=== PATIENT | male | born 1980 | race Caucasian/White ===

== ENCOUNTER → 2020-02-16 14:39 | Outpatient (BNVA) | payer BC, SELFPAY | PROVIDERS: PCP Internal Medicine; Visit Provider Urology | DX: Z76.89 Persons encountering health services in other specified circumstances (principal) | CPT/HCPCS: 55250 ==

== ENCOUNTER 2020-05-30 12:36 | Outpatient (REF) | payer SELFPAY | END 2020-05-30 12:37 | disposition home or self-care (01) | LOC: HO.LAB 12:36 | PROVIDERS: Visit Provider Internal Medicine | DX: Z20.822 Contact with and (suspected) exposure to COVID-19 (principal) | CPT/HCPCS: 36415; C9803; U0003 ==

== ENCOUNTER → 2020-11-30 14:05 | Outpatient (BNVA) | payer SELFPAY | PROVIDERS: Visit Provider Urology | DX: F41.8 Other specified anxiety disorders (principal); Z98.52 Vasectomy status | CPT/HCPCS: 99212 ==

== ENCOUNTER 2020-12-18 10:53 | Outpatient (REF) | payer SELFPAY ==
[2020-12-18 10:57] LABS: MANUAL DIFF FLAG NO
[2020-12-18 11:13] LABS: Basophils Percent Auto 0.4 % (0-2); Eosinophils Absolute Auto 0.3 X10*3/uL (0.0-0.4); Eosinophils Percent Auto 4.9 % (0-4); Hematocrit 49.3 % (42-52); Hemoglobin 15.7 g/dl (14.0-18.0); Imm Gran Abs Auto 0.01 X10*3/uL (0.00-0.03); Imm Gran Pct Auto 0.2 % (0.0-0.4); Lymphocytes Absolute Auto 2.2 X10*3/uL (1.2-4.9); Lymphocytes Percent Auto 38.2 % (20-40); Mean Corpuscular HGB Conc 31.8 g/dl (31.0-36.0); Mean Corpuscular Hemoglobin 29.3 pg (27.0-33.0); Mean Platelet Volume 8.9 fL (9.4-12.4); Monocytes Absolute Auto 0.6 X10*3/uL (0.1-1.2); Monocytes Percent Auto 10.5 % (2-11); Neutrophils Absolute Auto 2.6 X10*3/uL (2.0-8.3); Neutrophils Percent Auto 45.8 % (45-73); Platelet Count 310 X10*3/uL (160-400); Red Blood Count 5.36 X10*6/uL (4.60-5.80); Red Cell Distribution Width 12.5 % (11.0-16.0); White Blood Count 5.7 X10*3/uL (4.8-10.8)
[2020-12-18 11:38] LABS: Alanine Aminotransferase 56 U/L (0-40); Albumin Level 4.4 g/dL (3.5-5.0); Alkaline Phosphatase 60 U/L (39-117); Anion Gap 12 (12-20); Aspartate Amino Transferase 30 U/L (5-37); Bilirubin Total 0.5 mg/dL (0.0-1.0); Blood Urea Nitrogen 11 mg/dL (9-16); Calcium 9.6 mg/dL (8.4-10.2); Carbon Dioxide 26 mmol/L (22-29); Chloride 107 mmol/L (96-108); Cholesterol 203 mg/dL; Estimated Glomerular Filt Rate > 60; Glucose Fasting 120 mg/dL (60-99); HDL Cholesterol 34 mg/dL; LDL Cholesterol Calculated 123 mg/dl; Potassium 3.8 mmol/L (3.3-5.1); Sodium 141 mmol/L (135-145); Total Protein 7.4 g/dL (6.5-8.0); Triglycerides 230 mg/dL
[2020-12-18 11:45] LABS: Glucose Urine UA NEG (NEG); Leukocyte Esterase Urine NEG (NEG); Nitrite Urine NEG (NEG); PH 5.5 (5.0-8.0); Specific Gravity - Urine >= 1.030 (1.005-1.025); Urine Blood NEG (NEG); Urine Ketones NEG (NEG); Urine Protein TRACE MG/DL (NEG-TRACE)
[2020-12-18 11:55] LABS: Appearance Urine CLEAR; Color Urine YELLOW
== END 2020-12-18 10:54 | disposition home or self-care (01) ==
LOC: HO.LNP 10:53
PROVIDERS: Visit Provider Internal Medicine
DX: Z00.00 Encounter for general adult medical examination without abnormal findings (principal)
CPT/HCPCS: 80053; 80061; 81003; 85025

== ENCOUNTER 2021-12-19 11:28 | Outpatient (REF) | payer BC, SELFPAY ==
[2021-12-19 11:35] LABS: MANUAL DIFF FLAG NO
[2021-12-19 11:58] LABS: Basophils Percent Auto 0.4 % (0-2); Eosinophils Absolute Auto 0.3 X10*3/uL (0.0-0.4); Eosinophils Percent Auto 3.9 % (0-4); Hematocrit 48.3 % (42.0-52.0); Hemoglobin 16.2 g/dl (14.0-18.0); Imm Gran Abs Auto 0.02 X10*3/uL (0.00-0.03); Imm Gran Pct Auto 0.3 % (0.0-0.4); Lymphocytes Absolute Auto 2.8 X10*3/uL (1.2-4.9); Mean Corpuscular HGB Conc 33.5 g/dl (31.0-36.0); Mean Corpuscular Hemoglobin 30.2 pg (27.0-33.0); Mean Corpuscular Volume 90.1 fL (80.0-98.0); Mean Platelet Volume 8.9 fL (9.4-12.4); Monocytes Absolute Auto 0.8 X10*3/uL (0.1-1.2); Monocytes Percent Auto 9.7 % (2-11); Neutrophils Percent Auto 50.7 % (45-73); Platelet Count 359 X10*3/uL (160-400); Red Blood Count 5.36 X10*6/uL (4.60-5.80); Red Cell Distribution Width 12.6 % (11.0-16.0)
[2021-12-19 12:25] LABS: Alanine Aminotransferase 59 U/L (0-40); Albumin Level 4.5 g/dL (3.5-5.0); Alkaline Phosphatase 82 U/L (39-117); Anion Gap 14 (12-20); Aspartate Amino Transferase 28 U/L (5-37); Bilirubin Total 0.3 mg/dL (0.0-1.0); Blood Urea Nitrogen 15 mg/dL (9-16); Calcium 9.7 mg/dL (8.4-10.2); Carbon Dioxide 29 mmol/L (22-29); Chloride 102 mmol/L (96-108); Cholesterol 224 mg/dL; Estimated Glomerular Filt Rate > 60; Glucose Random 92 mg/dL (60-115); HDL Cholesterol 39 mg/dL; LDL Cholesterol Calculated 137 mg/dl; Sodium 141 mmol/L (135-145); Total Protein 8.2 g/dL (6.5-8.0); Triglycerides 244 mg/dL
[2021-12-19 12:26] LABS: Appearance Urine Clear; Color Urine Yellow; Glucose Urine UA Negative (Negative); Leukocyte Esterase Urine Negative (Negative); Nitrite Urine Negative (Negative); PH 5.5 (5.0-8.0); Urine Blood Negative (Negative); Urine Ketones Negative (Negative); Urine Protein Negative (Neg-Trace)
[2021-12-19 12:29] LABS: Bacteria Urine None Seen (None Seen); Hyaline Casts Urine 0-2 /LPF (0-2); RBC Urine 0-2 /HPF (0-2); Squamous Epithelial Cell Urine 0-2 /HPF (0-2); WBC Urine 0-5 /HPF (0-5)
[2021-12-19 12:48] LABS: PSA,Total (Free>4and<10) 0.52 ng/mL (0.00-4.00)
== END 2021-12-19 11:29 | disposition home or self-care (01) ==
LOC: HO.LNP 11:28
PROVIDERS: Visit Provider Internal Medicine
DX: Z00.00 Encounter for general adult medical examination without abnormal findings (principal); E78.6 Lipoprotein deficiency; I10 Essential (primary) hypertension; Z12.5 Encounter for screening for malignant neoplasm of prostate
CPT/HCPCS: 80053; 80061; 81001; 84153; 85025

== ENCOUNTER 2023-04-20 10:43 | Outpatient (REF) | payer BC, OTHER, SELFPAY ==
[2023-04-20 10:48] LABS: MANUAL DIFF FLAG NO
[2023-04-20 10:54] LABS: Appearance Urine Clear; Basophils Percent Auto 0.5 % (0-2); Color Urine Yellow; Eosinophils Absolute Auto 0.2 X10*3/uL (0.0-0.4); Eosinophils Percent Auto 3.6 % (0-4); Glucose Urine UA Negative (Negative); Hematocrit 48.6 % (42.0-52.0); Imm Gran Abs Auto 0.02 X10*3/uL (0.00-0.03); Imm Gran Pct Auto 0.3 % (0.0-0.4); Leukocyte Esterase Urine Negative (Negative); Lymphocytes Absolute Auto 2.2 X10*3/uL (1.2-4.9); Lymphocytes Percent Auto 35.5 % (20-40); Mean Corpuscular HGB Conc 32.9 g/dl (31.0-36.0); Mean Corpuscular Volume 91.2 fL (80.0-98.0); Mean Platelet Volume 9.1 fL (9.4-12.4); Monocytes Absolute Auto 0.7 X10*3/uL (0.1-1.2); Monocytes Percent Auto 11.2 % (2-11); Neutrophils Percent Auto 48.9 % (45-73); Nitrite Urine Negative (Negative); Platelet Count 315 X10*3/uL (160-400); Red Blood Count 5.33 X10*6/uL (4.60-5.80); Red Cell Distribution Width 12.7 % (11.0-16.0); Specific Gravity - Urine 1.025 (1.005-1.025); Urine Blood Negative (Negative); Urine Ketones Trace mg/dL (Negative); Urine Protein Negative (Neg-Trace); White Blood Count 6.2 X10*3/uL (4.8-10.8)
[2023-04-20 10:56] LABS: Bacteria Urine None Seen (None Seen); Hyaline Casts Urine 0-2 /LPF (0-2); RBC Urine 0-2 /HPF (0-2); Squamous Epithelial Cell Urine 0-2 /HPF (0-2); WBC Urine 0-5 /HPF (0-5)
[2023-04-20 11:05] LABS: Alanine Aminotransferase 41 U/L (0-40); Albumin Level 4.3 g/dL (3.5-5.0); Alkaline Phosphatase 56 U/L (39-117); Anion Gap 11 (12-20); Aspartate Amino Transferase 24 U/L (5-37); Bilirubin Total 0.6 mg/dL (0.0-1.0); Blood Urea Nitrogen 11 mg/dL (9-16); Calcium 9.4 mg/dL (8.4-10.2); Carbon Dioxide 29 mmol/L (22-29); Chloride 105 mmol/L (96-108); Cholesterol 213 mg/dL (<200); Estimated Glomerular Filt Rate > 60; Glucose Fasting 92 mg/dL (60-99); HDL Cholesterol 36 mg/dL (>40); LDL Cholesterol Calculated 135 mg/dL (<100); Potassium 3.3 mmol/L (3.3-5.1); Sodium 142 mmol/L (135-145); Total Protein 7.7 g/dL (6.5-8.0); Triglycerides 210 mg/dL (<150)
[2023-04-20 11:25] LABS: PSA,Total (Free>4and<10) 0.75 ng/mL (0.00-4.00)
== END 2023-04-20 10:44 | disposition home or self-care (01) ==
LOC: HO.LNP 10:43
PROVIDERS: Visit Provider Internal Medicine
DX: Z00.00 Encounter for general adult medical examination without abnormal findings (principal); Z12.5 Encounter for screening for malignant neoplasm of prostate; I10 Essential (primary) hypertension
CPT/HCPCS: 80053; 80061; 81001; 84153; 85025

== ENCOUNTER 2024-04-19 11:23 | Outpatient (REF) | payer BC, OTHER, SELFPAY ==
[2024-04-19 11:26] LABS: MANUAL DIFF FLAG NO
[2024-04-19 11:35] LABS: Basophils Percent Auto 0.3 % (0-2); Eosinophils Absolute Auto 0.3 X10*3/uL (0.0-0.4); Eosinophils Percent Auto 4.5 % (0-4); Hematocrit 48.9 % (42.0-52.0); Hemoglobin 16.2 g/dl (14.0-18.0); Imm Gran Abs Auto 0.01 X10*3/uL (0.00-0.03); Imm Gran Pct Auto 0.2 % (0.0-0.4); Lymphocytes Absolute Auto 2.7 X10*3/uL (1.2-4.9); Lymphocytes Percent Auto 41.9 % (20-40); Mean Corpuscular HGB Conc 33.1 g/dl (31.0-36.0); Mean Corpuscular Hemoglobin 29.9 pg (27.0-33.0); Mean Corpuscular Volume 90.2 fL (80.0-98.0); Mean Platelet Volume 8.8 fL (9.4-12.4); Monocytes Absolute Auto 0.7 X10*3/uL (0.1-1.2); Monocytes Percent Auto 10.5 % (2-11); Neutrophils Absolute Auto 2.7 x10*3/uL (2.0-8.3); Neutrophils Percent Auto 42.6 % (45-73); Platelet Count 309 X10*3/uL (160-400); Red Blood Count 5.42 X10*6/uL (4.60-5.80); Red Cell Distribution Width 12.6 % (11.0-16.0); White Blood Count 6.4 X10*3/uL (4.8-10.8)
[2024-04-19 11:44] LABS: Appearance Urine Clear; Color Urine Yellow; Glucose Urine UA Negative (Negative); Leukocyte Esterase Urine Negative (Negative); Nitrite Urine Negative (Negative); Specific Gravity - Urine 1.025 (1.005-1.025); Urine Blood Negative (Negative); Urine Ketones Trace mg/dL (Negative); Urine Protein Negative (Neg-Trace)
[2024-04-19 11:46] LABS: Alanine Aminotransferase 67 U/L (0-40); Albumin Level 4.4 g/dL (3.5-5.0); Alkaline Phosphatase 65 U/L (39-117); Anion Gap 10 (12-20); Aspartate Amino Transferase 37 U/L (5-37); Bilirubin Total 0.5 mg/dL (0.0-1.0); Blood Urea Nitrogen 12 mg/dL (9-16); Calcium 9.5 mg/dL (8.4-10.2); Carbon Dioxide 29 mmol/L (22-29); Chloride 106 mmol/L (96-108); Cholesterol 227 mg/dL (<200); Estimated Glomerular Filt Rate > 60; Glucose Fasting 96 mg/dL (60-99); HDL Cholesterol 39 mg/dL (>40); LDL Cholesterol Calculated 130 mg/dL (<100); Potassium 3.6 mmol/L (3.3-5.1); Sodium 141 mmol/L (135-145); Total Protein 7.9 g/dL (6.5-8.0); Triglycerides 292 mg/dL (<150)
[2024-04-19 12:04] LABS: PSA,Total (Free>4and<10) 0.45 ng/mL (0.00-4.00)
== END 2024-04-19 11:24 | disposition home or self-care (01) ==
LOC: HO.LNP 11:23
PROVIDERS: Visit Provider Internal Medicine
DX: Z00.00 Encounter for general adult medical examination without abnormal findings (principal); Z12.5 Encounter for screening for malignant neoplasm of prostate; I10 Essential (primary) hypertension; E78.6 Lipoprotein deficiency
CPT/HCPCS: 80053; 80061; 81003; 84153; 85025

== ENCOUNTER 2025-05-02 10:43 | Outpatient (REF) | payer SELFPAY ==
--- OUTSIDE RECORDS SUMMARY | 2024-04-19 02:00 | XMS_ITS ---
Author Organization Marcos Bae MD Address [address] [place], [place] [phone] Care Team Providers Care Nursing Agency Manager Name Role Phone Marcos Bae Primary Care Provider Results Component Value Reference Range Notes Complete Blood Count Auto Di ff Reviewed date:04/19/2024 12:22:17 PM Interpretation: Performing Lab:[facility], [address] [place] [phone] Notes/Report: White Blood Count 6.4 4.8-10.8 X10*3/uL Red Blood Count 5.42 4.60-5.80 X10*6/uL Hemoglobin 16.2 14.0-18.0 g/dl Hematocrit 48.9 42.0-52.0 % Mean Corpuscular Volume 90.2 80.0-98.0 fL Mean Corpuscular Hemoglobin 29.9 27.0-33.0 pg Mean Corpuscular HGB Conc 33.1 31.0-36.0 g/dl Red Cell Distribution Width 12.6 11.0-16.0 % Platelet Count 309 160-400 X10*3/uL Mean Platelet Volume 8.8 9.4-12.4 fL Neutrophils Percent Auto 42.6 45-73 % Imm Gran Pct Auto 0.2 0.0-0.4 % Lymphocytes Percent Auto 41.9 20-40 % Monocytes Percent Auto 10.5 2-11 % Eosinophils Percent Auto 4.5 0-4 % Basophils Percent Auto 0.3 0-2 % NRBC Pct Auto 0.0 0.0-0.2 /100WBC Neutrophils Absolute Auto 2.7 2.0-8.3 x10*3/u L Imm Gran Abs Auto 0.01 0.00-0.03 X10*3/uL Lymphocytes Absolute Auto 2.7 1.2-4.9 X10*3/u L Monocytes Absolute Auto 0.7 0.1-1.2 X10*3/uL Eosinophils Absolute Auto 0.3 0.0-0.4 X10*3/u L Basophils Absolute Auto 0.0 0.0-0.2 X10*3/uL NRBC Abs Auto 0.000 0.0-0.012 X10*3/uL Comprehensive [place]. Panel Fa st Reviewed date:04/21/2024 05:06:09 PM Interpretation: Performing Lab:[facility], [address] [place] [phone] Notes/Report: Sodium 141 135-145 mmol/L Potassium 3.6 3.3-5.1 mmol/L Chloride 106 96-108 mmol/L Carbon Dioxide 29 22-29 mmol/L Anion Gap 10 12-20 Blood Urea Nitrogen 12 9-16 mg/dL Creatinine 1.02 0.5-1.4 mg/dL Estimated Glomerular Filt Rate > 60 Chronic Kidney Disease: Estimated GFR < 60 mL/min/1.73m2 Severe Kidney Disease: Estimated GFR < 15 mL/min/1.73m2 Glucose Fasting 96 60-99 mg/dL Calcium 9.5 8.4-10.2 mg/dL Bilirubin Total 0.5 0.0-1.0 mg/dL Aspartate Amino Transferase 37 5-37 U/L Alanine Aminotransferase 67 0-40 U/L Total Protein 7.9 6.5-8.0 g/dL Albumin Level 4.4 3.5-5.0 g/dL Alkaline Phosphatase 65 39-117 U/L Lipid Panel Reviewed date:04/19/2024 12:23:16 PM Interpretation: Performing Lab:[facility], [address] [place] [phone] Notes/Report: Triglycerides 292 <150 mg/dL Desirable Triglyceride: less than 150 mg/dL Borderline High Triglyceride 150-199 mg/dL High Triglyceride: 200-499 mg/dL Very High Triglyceride: greater than or equal to 5OO mg/dL Cholesterol 227 <200 mg/dL Desirable Cholesterol: less than 200 mg/dL Borderline High Cholesterol: 200-239 mg/dL High Cholesterol: greater than 239 mg/dL LDL Cholesterol Calculated 130 <100 mg/dL Desirable LDL: less than 100 mg/dL Near Optimal/Above Optimal LDL: 110-129 mg/dL Borderline High LDL: 130-159 mg/dL High LDL: 160-189 mg/dL Very High LDL: greater than or equal to 190 mg/dL HDL Cholesterol 39 >40 mg/dL Desirable HDL: greater than 40 mg/dL Note: This HDL assay may give artificially low results in patients with liver disease. PSA,Total (Free>4and<10) Reviewed date:04/19/2024 12:23:08 PM Interpretation: Performing Lab:[facility], [address] [place] [phone] Notes/Report: PSA,Total (Free>4and<10) 0.45 0.00-4.00 ng/mL A Free PSA was not performed: The percentage of Free PSA can be used to enhance the differentiation of prostate cancer from benign prostatic disease in subjects whose PSA levels are between 4.0 and 10.0 ng/mL. For subjects whose PSA levels are below 4.0 or above 10.0 ng/mL, the risk of prostate cancer is determined on the basis of the PSA alone. Therefore the % Free PSA is recommended only for those subjects whose PSA levels are between 4.0 and 10.0 ng/mL. PSA methodology: Bunch Alinity i Chemiluminescent Microparticle Immunoassay (CMIA) REASON FOR VISIT yealy fasting labs Medications Medication SIG (Take, Route, Frequency, Duration) Notes Start Date End Date Status EpiPen 2-Fidel 0.3 MG/0.3ML as directed Injection daily for 90 days 06/07/2019 Not-Taking Ibuprofen 800 MG 1 tablet with food o r milk as needed Orally Three times a day for 30 days 12/26/2021 Not-Taking Ibuprofen 800 MG 1 tablet Orally Thre e times a day for 30 day(s) 07/13/2012 Not-Taking Lisinopril-hydroCHLOROth iazide 10-12.5 MG 1 tablet Orally Once a day for 90 days 04/24/2023 Active Ambien 5 MG 1 tablet at bedtime as needed Orally Once a day as needed for 30 days 07/07/2023 Active Encounters Encounter Location Date Provider Diagnosis Marcos Bae MD [address] [place] [address] Drive [address] [place], [place] [phone] 04/19/2024 Marcos Bae Blood tests for routine general physical examination Z00.00 ; Benign essential hypertension I10 and Low HDL (under 40) E78.6 Assessments Encounter Date Diagnosis (ICD Code) Assessment Notes Treatment Notes Treatment Clinical Notes Section Notes 04/19/2024 Blood tests for routine general physical examination (ICD-10 - Z00.00) 04/19/2024 Benign essential hypertension (ICD-10 - I10) 04/19/2024 Low HDL (under 40) (ICD-10 - E78.6) Plan Of Treatment Next Appt Details Provider Name:Marcos Shah ier, 05/08/2025 02:30:00 PM, [address], [address], [place], [place], [phone], Progress Notes * Dinh CEDENODOB:[birth year] (44 yo M)Acc No.[id number]:04/19/2024 Progress Note Patient: Dinh ROSARIO Provider: Ava Bae MD :1980 A ge:43 Y S ex:Male Date:04/19/2024 Address:[address] [place], [place] [phone] Subjective: * Chief Complaints: * 1 . Yealy fasting labs. * Medical History: * Medications: T aking Lisinopril-hydroCHLOROthiazide 10-12.5 MG Tablet 1 tablet Orally Once a day , Taking Ambien 5 MG Tablet 1 tablet at bedtime as needed Orally Once a day as needed , Not-Taking/PRN EpiPen 2-Fidel 0.3 MG/0.3ML Solution Auto-injector as directed Injection daily , Not-Taking/PRN Ibuprofen 800 MG Tablet 1 tablet with food or milk as needed Orally Three times a day , Not-Taking/PRN Ibuprofen 800 MG Tablet 1 tablet Orally Three times a day Objective: * Vitals: Assessment: * Assessment: 1. B lood tests for routine general physical examination - Z00.00 (Primary) 2 .?Benign essential hypertension - I10 3 . L ow HDL (under 40) - E78.6 ? Plan: * Treatment: 2. B enign essential hypertension L AB: UA ClnCatch+Micro w/rflx Cult (Order Cancelled) L AB: Complete Blood Count Auto Diff (Collection Date & Time - 04/19/2024 07:00 AM) L AB: Comprehensive [place]. Panel Fast (Collection Date & Time - 04/19/2024 07:00 AM) L AB: Lipid Panel (Collection Date & Time - 04/19/2024 07:00 AM) L AB: PSA,Total (Free>4and<10) (Collection Date & Time - 04/19/2024 07:00 AM) 3. L ow HDL (under 40) L AB: UA ClnCatch+Micro w/rflx Cult (Order Cancelled) L AB: Complete Blood Count Auto Diff (Collection Date & Time - 04/19/2024 07:00 AM) L AB: Comprehensive [place]. Panel Fast (Collection Date & Time - 04/19/2024 07:00 AM) L AB: Lipid Panel (Collection Date & Time - 04/19/2024 07:00 AM) L AB: PSA,Total (Free>4and<10) (Collection Date & Time - 04/19/2024 07:00 AM) * Procedure Codes: 3 6415 VENIPUNCT, ROUTINE* * * The named appointment provid er may or may not be the originator of this progress note, and it is not deemed complete until electronically signed by the appointment provider. Sign off status: Pending * Provider: Ava Bae MD Date: 06/20/2023 Generated for Gricelda rutherford/Quinton/Dadaitting on: 02:23 PM EST
--- OUTSIDE RECORDS SUMMARY | 2024-04-29 09:30 | XMS_ITS ---
Author Organization Marcos Bae MD Address [address] [place] [phone] Care Team Providers Care Adzing And Boring Machine Operator Name Role Phone Marcos Bae Primary Care Provider [phone] Allergies Allergen (clinical drug ingredient) Drug/Non Drug Allergy documented on EMR Reaction Allergy Type Onset Date Status red cough drop (uncoded) lips swelling Allergy Active Results Component Value Reference Range Notes Occult Blood, Stool, Guaiac Reviewed date:04/29/2024 03:04:58 PM Interpretation:Negative Performing Lab: Notes/Report: Negative Occult Blood, Stool, Guaiac Neg REASON FOR VISIT annual visit, Has not taken his medication x 7 months Medications Medication SIG (Take, Route, Frequency, Duration) Notes Start Date End Date Status Lisinopril-hydroCHLOROth iazide 10-12.5 MG 1 tablet Orally Once a day for 90 days 04/24/2023 Active Ibuprofen 800 MG 1 tablet with food o r milk as needed Orally Three times a day for 30 days 12/26/2021 Not-Taking Ibuprofen 800 MG 1 tablet Orally Thre e times a day for 30 day(s) 07/13/2012 Not-Taking EpiPen 2-Fidel 0.3 MG/0.3ML as directed Injection daily for 90 days 06/07/2019 Active Ambien 5 MG 1 tablet at bedtime as needed Orally Once a day as needed for 30 days 07/07/2023 Active Social History Tobacco Use: Social History Observation Description Date Details (start date - stop date) Never Smoker NA - NA Tobacco Use/Smoking Question Answer Notes Patient is a nonsmoker Additional Findings: Tobacco Non-User Cu rrent non-smoker, currently using no form of tobacco Alcohol Screen Question Answer Notes Did you have a drink contain ing alcohol in the past year? Yes How often did you have a dri nk containing alcohol in the past year? Monthly or less (1 point) How many drinks did you have on a typical day when you were drinking in the past year? 1 or 2 drinks (0 point) How often did you have 6 or more drinks on one occasion in the past year? Never (0 point) Points 1 Interpretation Negative Vital Signs Blood pressure systolic 124 mm Hg 04/29/20 24 Blood pressure diastolic 82 mm Hg 024 Height 69 in 04/29/2024 Weight 199 lbs 04/29/2024 BMI 29.38 kg/m2 04/29/2024 weight is down 3 pounds [facility] 04-24-23 Encounters Encounter Location Date Provider Diagnosis Marcos Bae MD [address] [place] [address] [place] [phone] 04/29/2024 Marcos Bae Essential hypertension I10 ; Annual physical exam Z00.00 ; Angioedema, initial encounter T78.3XXA ; Colon cancer screening Z12.11 and Depression screening Z13.31 Assessments Encounter Date Diagnosis (ICD Code) Assessment Notes Treatment Notes Treatment Clinical Notes Section Notes 04/29/2024 Essential hypertension (ICD-10 - I10) has been off meds, bp running high, will go back on meds and continue to monitor 04/29/2024 Annual physical exam (ICD-10 - Z00.00) labs reviewed and discussed with patient 04/29/2024 Angioedema, initial encounter (ICD-10 - T78.3XXA) 04/29/2024 Colon cancer screening (ICD-10 - Z12.11) guaiac negative 04/29/2024 Depression screening (ICD-10 - Z13.31) negative screen Plan Of Treatment Medication Medication Name Sig Start Date Stop Date Notes Lisinopril-hydroCHLOROthiazi de 10-12.5 MG 1 tablet Orally Once a day for 90 days 04/24/2023 EpiPen 2-Fidel 0.3 MG/0.3ML as directed In jection daily for 90 days 06/07/2019 Treatment Notes Assessment Notes Essential hypertension has been off meds , bp running high, will go back on meds and continue to monitor Annual physical exam labs reviewed and d iscussed with patient Colon cancer screening guaiac negative Depression screening negative screen Next Appt Details Follow Up: 2 Months, Reason: Provider Name:Marcos Epifanio Shah ier, 05/08/2025 02:30:00 PM, [address], [address], [place], [place], [phone], Progress Notes * Dinh CEDENODOB:[birth year] (43 yo M)Acc No.[id number]:04/29/2024 Progress Notes Patient: Dinh Smith Provider: Ava Bae MD :1980 A ge:43 Y S ex:Male Date:04/29/2024 Address:[address] [place], [place] [phone] Subjective: * Chief Complaints: * A nnual visitHas not taken his medication x 7 months * HPI: D epression Screening: PHQ-9 L ittle interest or pleasure in doing things N ot at all, F eeling down, depressed, or hopeless N ot at all, T rouble falling or staying asleep, or sleeping too much N ot at all, F eeling tired or having little energy N ot at all, P oor appetite or overeating N ot at all, F eeling bad about yourself or that you are a failure, or have let yourself or your family down N ot at all, T rouble concentrating on things, such as reading the newspaper or watching television N ot at all, M oving or speaking so slowly that other people could have noticed; or the opposite, being so fidgety or restless that you have been moving around a lot more than usual N ot at all, T houghts that you would be better off or of hurting yourself in some way N ot at all, T otal Score 0 . I nterpretation and Intervention D epression Screening Findings N egative, F ollow-Up for Depression : review of PHQ-9 found negative result, no follow-up needed. S ymptom(s): patient is a 43 yo male here for yearly exam with review of recent labsand follow up of chronic issues. has not taken his meds in 7 months. * ROS: G eneral/Constitutional: Patient denies f atigue , headache. C hange in appetite?denies. C hills d enies. F ever d enies. O phthalmologic: Blurred vision d enies. D ischarge d enies. P ain d enies. E NT: Patient denies d ecreased sense of smell , any loss of taste , sore throat. D ecreased hearing d enies. S ore throat d enies. S wollen glands d enies. E ndocrine: Cold intolerance d enies. E xcessive thirst d enies. H eat intolerance d enies. W eight loss d enies. R espiratory: Cough d enies. S hortness of breath at rest d enies. S hortness of breath with exertion d enies. W heezing d enies. C ardiovascular: Chest pain at rest d enies. C hest pain with exertion?denies. I rregular heartbeat d enies. S hortness of breath d enies. ? G astrointestinal: Abdominal pain d enies. C hange in bowel habits d enies. D iarrhea d enies. N ausea d enies. R ectal bleeding d enies. V omiting d enies . G enitourinary: Blood in urine d enies. D ifficulty urinating d enies. F requent urination d enies. M usculoskeletal: Patient denies m uscle aches. P ainful joints d enies. W eakness d enies. P eripheral Vascular: Patient denies r ed and blue toes. S kin: Dry skin d enies. I tching d enies. D enies?Mole(s), changes in moles, new moles or any lesions of concern. D enies P hotosensitivity. R laxmi d enies. N eurologic: Dizziness d enies. F ainting d enies. H eadache?denies. * Medical History: * Surgical History: * Hospitalization/Major Diagno stic Procedure: * Family History: F ather: alive 65 yrs, diagnosed with Diabetes. M other: alive 55 yrs. 2 brother(s) , 1 sister(s) . 2 son(s) , 1 daughter(s) . . Father healthy Mother healthy, Denies mental health/substance abuse family history, Denies mental health/substance abuse family history, No pertinent family medical history. * Social History: T obacco Use: T obacco Use/Smoking P car is a n onsmoker, A dditional Findings: Tobacco Non-User C urrent non-smoker, currently using no form of tobacco. D rugs/Alcohol: A lcohol Screen D id you have a drink containing alcohol in the past year? Y es, H ow often did you have a drink containing alcohol in the past year? M onthly or less (1 point), H ow many drinks did you have on a typical day when you were drinking in the past year? 1 or 2 drinks (0 point), H ow often did you have 6 or more drinks on one occasion in the past year? N ever (0 point), P oints 1 , I nterpretation N egative. M iscellaneous: n o Caffeine. Children: yes. no Community involvements. no Exercise. Home smoke detector use: yes. Housing: renting. Living with: family. Marital status: single. Occupation: weeks/months/years, works full-time. Pets: none. no Travel outside of the [place]. * Medications: T akingLisinopril-hydroCHLOROthiazide 10-12.5 MG Tablet 1 tablet Orally Once a dayAmbien 5 MG Tablet 1 tablet at bedtime as needed Orally Once a day as neededTaking Lisinopril-hydroCHLOROthiazide 10-12.5 MG Tablet 1 tablet Orally Once a dayTaking Ambien 5 MG Tablet 1 tablet at bedtime as needed Orally Once a day as neededNot-Taking/PRNEpiPen 2-Fidel 0.3 MG/0.3ML Solution Auto-injector as directed Injection dailyIbuprofen 800 MG Tablet 1 tablet with food or milk as needed Orally Three times a dayIbuprofen 800 MG Tablet 1 tablet Orally Three times a dayNot-Taking/PRN EpiPen 2-Fidel 0.3 MG/0.3ML Solution Auto-injector as directed Injection dailyNot-Taking/PRN Ibuprofen 800 MG Tablet 1 tablet with food or milk as needed Orally Three times a dayNot-Taking/PRN Ibuprofen 800 MG Tablet 1 tablet Orally Three times a day * Allergies: r ed cough drop: lips swellingyes[Allergies Verified] Objective: * Vitals: H t: 69, Wt:199, BMI:29.38, BP:124/82, Repeat BP:160/98 weight is down 3 pounds since 04-24-23. * P ast Orders: L ab:Comprehensive [place]. Panel Fast (Order Date - 04/19/2024) (Collection Date - 04/19/2024) Value Reference Range Sodium 141 135-145 - mmol/L Bilirubin Total 0.5 0.0-1.0 - mg/dL Aspartate Amino Transferase 37 5-37 - U/L Alanine Aminotransferase 67 H 0-40 - U/L Total Protein 7.9 6.5-8.0 - g/dL Albumin Level 4.4 3.5-5.0 - g/dL Alkaline Phosphatase 65 39-117 - U/L Potassium 3.6 3.3-5.1 - mmol/L Chloride 106 96-108 - mmol/L Carbon Dioxide 29 22-29 - mmol/L Anion Gap 10 L 12-20 - Blood Urea Nitrogen 12 9-16 - mg/dL Creatinine 1.02 0.5-1.4 - mg/dL Estimated Glomerular Filt Rate > 60 - Glucose Fasting 96 60-99 - mg/dL Calcium 9.5 8.4-10.2 - mg/dL L ab:Lipid Panel (Order Date - 04/19/2024) (Collection Date - 04/19/2024) Value Reference Range Triglycerides 292 H <150 - mg/dL Cholesterol 227 H <200 - mg/dL LDL Cholesterol Calculated 130 H <100 - mg/dL HDL Cholesterol 39 L >40 - mg/dL L ab:PSA,Total (Free>4and<10) (Order Date - 04/19/2024) (Collection Date - 04/19/2024) Value Reference Range PSA,Total (Free>4and<10) 0.45 0.00-4.00 - ng/ mL L ab:UA CC w/rflx Micro + Cult (Order Date - 04/19/2024) (Collection Date - 04/19/2024) Value Reference Range Color Urine Yellow - Appearance Urine Clear - PH 6.0 5.0-9.0 - Glucose Urine UA Negative Negative - mg/dL Urine Blood Negative Negative - Specific [place] - Urine 1.025 1.005-1.025 - Urine Protein Negative Neg-Trace - mg/dL Urine Ketones Trace Negative - mg/dL Nitrite Urine Negative Negative - Leukocyte Esterase Urine Negative Negative - L ab:Complete Blood Count Auto Diff (Order Date - 04/19/2024) (Collection Date - 04/19/2024) Value Reference Range White Blood Count 6.4 4.8-10.8 - X10*3/uL Red Blood Count 5.42 4.60-5.80 - X10*6/uL Hemoglobin 16.2 14.0-18.0 - g/dl Hematocrit 48.9 42.0-52.0 - % Mean Corpuscular Volume 90.2 80.0-98.0 - fL Mean Corpuscular Hemoglobin 29.9 27.0-33.0 - pg Mean Corpuscular HGB Conc 33.1 31.0-36.0 - g/ dl Red Cell Distribution Width 12.6 11.0-16.0 - % Platelet Count 309 160-400 - X10*3/uL Mean Platelet Volume 8.8 L 9.4-12.4 - fL Neutrophils Percent Auto 42.6 L 45-73 - % Imm Gran Pct Auto 0.2 0.0-0.4 - % Lymphocytes Percent Auto 41.9 H 20-40 - % Monocytes Percent Auto 10.5 2-11 - % Eosinophils Percent Auto 4.5 H 0-4 - % Basophils Percent Auto 0.3 0-2 - % NRBC Pct Auto 0.0 0.0-0.2 - /100WBC Neutrophils Absolute Auto 2.7 2.0-8.3 - x10* 3/uL Imm Gran Abs Auto 0.01 0.00-0.03 - X10*3/uL Lymphocytes Absolute Auto 2.7 1.2-4.9 - X10* 3/uL Monocytes Absolute Auto 0.7 0.1-1.2 - X10*3/ uL Eosinophils Absolute Auto 0.3 0.0-0.4 - X10* 3/uL Basophils Absolute Auto 0.0 0.0-0.2 - X10*3/ uL NRBC Abs Auto 0.000 0.0-0.012 - X10*3/uL * Examination: G eneral Examination: GENERAL APPEARANCE: w ell developed, well nourished, in no acute distress. HEAD: n ormocephalic, atraumatic. EYES: p upils equal, round, reactive to light and accommodation, sclera non-icteric. EARS: n ormal. ORAL CAVITY: m ucosa moist. THROAT: c lear. NECK/THYROID: n tonia supple, full range of motion, no cervical lymphadenopathy, no bruits. SKIN: w arm and dry, no suspicious lesions. HEART: r egular rate and rhythm, S1, S2 normal, no murmurs.? LUNGS: c lear to auscultation bilaterally. ABDOMEN: s oft, nontender, nondistended, bowel sounds present, normal, no organomegaly , no masses palpable. RECTAL EXAM: n ormal tone, no external hemorrhoids, no masses palpable, prostate normal, stool guaiac negative. MALE GENITOURINARY: u ncircumcised , testes descended bilaterally , no testicular mass. EXTREMITIES: n o clubbing, cyanosis, or edema. NEUROLOGIC: n onfocal, motor strength normal upper and lower extremities, sensory exam intact. Assessment: * Assessment: 1. A nnual physical exam - Z00.00 (Primary) 2 . E ssential hypertension - I10 3 .?Angioedema, initial encounter - T78.3XXA 4 . C olon cancer screening - Z12.11 5 .?Depression screening - Z13.31 Plan: * Treatment: 2. E ssential hypertension Refill Lisinopril-hydroCHLOROthiazide Tablet, 10-12.5 MG, 1 tablet, Orally, Once a day, 90 days, 90 Tablet, Refills 3. Notes: has been off meds, bp running high, will go back on meds and continue to monitor 3. A ngioedema, initial encounter Refill EpiPen 2-Fidel Solution Auto-injector, 0.3 MG/0.3ML, as directed, Injection, daily, 90 days, 1, Refills 1. 4. C olon cancer screening L AB: Occult Blood, Stool, Guaiac N egative Value Reference Range O ccult Blood, Stool, Guaiac Neg Notes: guaiac negative??5.?Depression screening? Notes: negative screen?? * Procedure Codes: 8 4637 TEST FOR BLOOD, FECES * Preventive Medicine: Counseling: C are goal follow-up plan: C evelyn for abnormal BMI provided?Yes, A lester Normal BMI Follow-up Ava ashraf encouragement to exercise. * Follow Up: 2 Months * * Sign off status: Completed true * Provider: Ava Bae MD Date: 06/30/2023 Generated for Paigei sangeeta/Quinton/eTransmitting on: 02:23 PM EST History and Physical Notes * HPI (History of Present Illness) Category Sub-Category Detail Notes Category Not es Symptom(s) patient is a 43 yo male here for yearly exam with review of recent labsand follow up of chronic issues. has not taken his meds in 7 months Depression Screening PHQ-9 Little inte rest or pleasure in doing things: Not at all Feeling down, depressed, or hopeless: No t at all Trouble falling or staying asleep, or sl eeping too much: Not at all Feeling tired or having little energy: N ot at all Poor appetite or overeating: Not at all Feeling bad about yourself o r that you are a failure, or have let yourself or your family down: Not at all Trouble concentrating on thi ngs, such as reading the newspaper or watching television: Not at all Moving or speaking so slowly that other people could have noticed; or the opposite, being so fidgety or restless that you have been moving around a lot more than usual: Not at all Thoughts that you would be b viki off or of hurting yourself in some way: Not at all Total Score: 0 Interpretation and Intervention Depression Marlo bernstein Findings: Negative Follow-Up for Depression: : review of PH Q-9 found negative result, no follow-up needed Examination Category Sub-Category Detail Notes Category Not es General Examination GENERAL APPEARANCE: well dev eloped, well nourished, in no acute distress HEAD: normocephalic, atrau matic EYES: pupils equal, round, reactive to light and accommodation, sclera non-icteric EARS: normal THROAT: clear NECK/THYROID: neck supple, full ra nge of motion, no cervical lymphadenopathy, no bruits HEART: regular rate and rhy thm, S1, S2 normal, no murmurs LUNGS: clear to auscultatio n bilaterally ABDOMEN: soft, nontender, non distended, bowel sounds present, normal, no organomegaly , no masses palpable NEUROLOGIC: nonfocal, motor stre ngth normal upper and lower extremities, sensory exam intact SKIN: warm and dry, no kristen picious lesions EXTREMITIES: no clubbing, cyanosi s, or edema MALE GENITOURINARY: uncircumcised , test es descended bilaterally , no testicular mass RECTAL EXAM: normal tone, no exte rnal hemorrhoids, no masses palpable, prostate normal, stool guaiac negative ORAL CAVITY: mucosa moist
--- OUTSIDE RECORDS SUMMARY | 2024-06-30 09:00 | XMS_ITS ---
Author Organization Marcos Bae MD Address [address] [place] [phone] Care Team Providers Care Commissioned Sales Associate Name Role Phone Marcos Bae Primary Care Provider [phone] Allergies Allergen (clinical drug ingredient) Drug/Non Drug Allergy documented on EMR Reaction Allergy Type Onset Date Status red cough drop (uncoded) lips swelling Allergy Active REASON FOR VISIT 2 month Medications Medication SIG (Take, Route, Frequency, Duration) Notes Start Date End Date Status Lisinopril-hydroCHLOROth iazide 10-12.5 MG 1 tablet Orally Once a day 04/24/2023 Active Ibuprofen 800 MG 1 tablet Orally Thre e times a day for 30 day(s) 07/13/2012 Not-Taking EpiPen 2-Fidel 0.3 MG/0.3ML as directed Injection daily for 90 days 06/07/2019 Active Ibuprofen 800 MG 1 tablet with food o r milk as needed Orally Three times a day for 30 days 12/26/2021 Not-Taking Vital Signs Blood pressure systolic 132 mm Hg 06/30/19 25 Blood pressure diastolic 80 mm Hg 025 Height 69 in 06/30/2024 Weight 199 lbs 06/30/2024 BMI 29.38 kg/m2 06/30/2024 Encounters Encounter Location Date Provider Diagnosis Marcos Bae MD [address] [place] [phone] 06/30/2024 Marcos Bae Essential hypertension I10 Assessments Encounter Date Diagnosis (ICD Code) Assessment Notes Treatment Notes Treatment Clinical Notes Section Notes 06/30/2024 Essential hypertension (ICD-10 - I10) stable, will cntinue current regiment Plan Of Treatment Medication Medication Name Sig Start Date Stop Date Notes Lisinopril-hydroCHLOROthiazi de 10-12.5 MG 1 tablet Orally Once a day 04/24/2023 Treatment Notes Assessment Notes Essential hypertension stable, will jeff barton current regiment Next Appt Details Follow Up: 6 Months, Reason: Provider Name:Marcos monteiror, 05/08/2025 02:30:00 PM, [address], [address], [place], [place], [phone], Progress Notes * Dinh CEDENODOB:[birth year] (43 yo M)Acc No.[id number]:06/30/2024 Progress Notes Patient: Dinh ROSARIO Provider: Ava Bae MD :1980 A ge:43 Y S ex:Male Date:06/30/2024 Address:[address] [place] [address] Subjective: * Chief Complaints: * 2 month * HPI: S ymptom(s): patient is a 43 here for 2 month f ollow up., breathing well no wheezing. * ROS: G eneral/Constitutional: Denies C hills. D enies F atigue. D enies F ever. D enies H eadache. E NT: Patient denies d ecreased sense of smell, any loss of taste, sore throat. D enies S ore throat. R espiratory: Denies C ough. D enies S hortness of breath at rest. D enies S hortness of breath with exertion. C ardiovascular: Denies C hest pain at rest. D enies C hest pain with exertion. D enies D izziness. D enies P alpitations. D enies S hortness of breath. G astrointestinal: Denies D iarrhea. D enies N ausea. M usculoskeletal: Patient denies m uscle aches. P eripheral Vascular: Patient denies r ed and blue toes. * Medical History: * Surgical History: * Hospitalization/Major Diagno stic Procedure: * Medications: T akingLisinopril-hydroCHLOROthiazide 10-12.5 MG Tablet 1 tablet Orally Once a day EpiPen 2-Fidel 0.3 MG/0.3ML Solution Auto-injector as directed Injection daily Taking Lisinopril-hydroCHLOROthiazide 10-12.5 MG Tablet 1 tablet Orally Once a day Taking EpiPen 2-Fidel 0.3 MG/0.3ML Solution Auto-injector as directed Injection daily Not-Taking/PRNIbuprofen 800 MG Tablet 1 tablet with food or milk as needed Orally Three times a day Ibuprofen 800 MG Tablet 1 tablet Orally Three times a day Not-Taking/PRN Ibuprofen 800 MG Tablet 1 tablet with food or milk as needed Orally Three times a day Not-Taking/PRN Ibuprofen 800 MG Tablet 1 tablet Orally Three times a day DiscontinuedAmbien 5 MG Tablet 1 tablet at bedtime as needed Orally Once a day as needed Medication List reviewed and reconciled with the patientDiscontinued Ambien 5 MG Tablet 1 tablet at bedtime as needed Orally Once a day as needed Medication List reviewed and reconciled with the patient * Allergies: r ed cough drop: lips swellingyes[Allergies Verified] Objective: * Vitals: H t: 69, Wt: 199, BMI:29.38, BP:132/80, Wt-k.27. * Examination: G eneral Examination: GENERAL APPEARANCE: a lert, well hydrated, in no distress.? HEAD: n ormocephalic. HEART: n o murmurs, rubs, gallops, regular rate and rhythm.? LUNGS: n o wheezes, rales, rhonchi, good air movement, clear to auscultation bilaterally. Assessment: * Assessment: 1. E ssential hypertension - I10 (Primary) Plan: * Treatment: * Procedure Codes: * Follow Up: 6 Months * * Sign off status: Completed true * Provider: Ava Bae MD Date: 0 06/30/2024 Generated for Gricelda rutherford/Quinton/Brock on: 02:23 PM EST History and Physical Notes * HPI (History of Present Illness) Category Sub-Category Detail Notes Category Not es Symptom(s) patient is a 43 here for 2 month follow up., breathing well no wheezing Examination Category Sub-Category Detail Notes Category Not es General Examination GENERAL APPEARANCE: alert, w ell hydrated, in no distress HEAD: normocephalic HEART: no murmurs, rubs, ga llops, regular rate and rhythm LUNGS: no wheezes, rales, r honchi, good air movement, clear to auscultation bilaterally
--- OUTSIDE RECORDS SUMMARY | 2025-05-02 03:15 | XMS_ITS ---
Author Organization Marcos Bae MD Address [address] [place], [place] [phone] Care Team Providers Care Removable Prosthodontist Name Role Phone Marcos Bae Primary Care Provider [phone] Results Component Value Reference Range Notes Complete Blood Count Auto Di ff Reviewed date:05/02/2025 12:54:16 PM Interpretation: Performing Lab:[facility], [address] [place] [phone] Notes/Report: White Blood Count 7.2 4.8-10.8 X10*3/uL Red Blood Count 5.45 4.60-5.80 X10*6/uL Hemoglobin 16.2 14.0-18.0 g/dl Hematocrit 49.3 42.0-52.0 % Mean Corpuscular Volume 90.5 80.0-98.0 fL Mean Corpuscular Hemoglobin 29.7 27.0-33.0 pg Mean Corpuscular HGB Conc 32.9 31.0-36.0 g/dl Red Cell Distribution Width 12.6 11.0-16.0 % Platelet Count 324 160-400 X10*3/uL Mean Platelet Volume 8.8 9.4-12.4 fL Neutrophils Percent Auto 46.2 45-73 % Imm Gran Pct Auto 0.3 0.0-0.4 % Lymphocytes Percent Auto 38.2 20-40 % Monocytes Percent Auto 11.0 2-11 % Eosinophils Percent Auto 3.9 0-4 % Basophils Percent Auto 0.4 0-2 % NRBC Pct Auto 0.0 0.0-0.2 /100WBC Neutrophils Absolute Auto 3.3 2.0-8.3 x10*3/u L Imm Gran Abs Auto 0.02 0.00-0.03 X10*3/uL Lymphocytes Absolute Auto 2.8 1.2-4.9 X10*3/u L Monocytes Absolute Auto 0.8 0.1-1.2 X10*3/uL Eosinophils Absolute Auto 0.3 0.0-0.4 X10*3/u L Basophils Absolute Auto 0.0 0.0-0.2 X10*3/uL NRBC Abs Auto 0.000 0.0-0.012 X10*3/uL Comprehensive [place]. Panel Fa Reviewed date:05/02/2025 12:39:45 PM Interpretation: Performing Lab:[facility], [address] [place] [phone] Notes/Report: Sodium 142 135-145 mmol/L Potassium 3.6 3.3-5.1 mmol/L Slight Hemolysis.Interpret result with caution. Chloride 105 96-108 mmol/L Carbon Dioxide 27 22-29 mmol/L Anion Gap 14 12-20 Blood Urea Nitrogen 10 9-16 mg/dL Creatinine 0.97 0.5-1.4 mg/dL Estimated Glomerular Filt Rate > 60 Chronic Kidney Disease: Estimated GFR < 60 mL/min/1.73m2 Severe Kidney Disease: Estimated GFR < 15 mL/min/1.73m2 Glucose Fasting 90 60-99 mg/dL Calcium 9.4 8.4-10.2 mg/dL Bilirubin Total 0.6 0.0-1.0 mg/dL Aspartate Amino Transferase 42 5-37 U/L Slight Hemolysis.Interpret result with caution. Alanine Aminotransferase 72 0-40 U/L Total Protein 7.8 6.5-8.0 g/dL Albumin Level 4.5 3.5-5.0 g/dL Alkaline Phosphatase 73 39-117 U/L PSA,Total (Free>4and<10) Reviewed date:05/02/2025 12:01:41 PM Interpretation: Performing Lab:[facility], [address] [place] [phone] Notes/Report: PSA,Total (Free>4and<10) 0.47 0.00-4.00 ng/mL A Free PSA was not [...] Bunch Alinity i Chemiluminescent Microparticle Immunoassay (CMIA) UA ClnCatch+Micro w/rflx Cul t Reviewed date:05/02/2025 12:52:35 PM Interpretation: Performing Lab:[facility], [address] [place] [phone] Notes/Report: Urine, Clean Catch Color Urine Yellow Appearance Urine Clear PH 6.5 5.0-9.0 Glucose Urine UA Negative Negative mg/dL Urine Blood Negative Negative Specific [place] - Urine 1.020 1.005-1.025 Urine Protein Trace Neg-Trace mg/dL Urine Ketones Negative Negative mg/dL Nitrite Urine Negative Negative Leukocyte Esterase Urine Trace Negative RBC Urine 0-2 0-2 /HPF WBC Urine 0-5 0-5 /HPF Squamous Epithelial Cell Urine 0-2 0-2 /HPF Bacteria Urine None Seen None Seen Hyaline Casts Urine 0-2 0-2 /LPF REASON FOR VISIT yearly fasting labs Encounters Encounter Location Date Provider Diagnosis Marcos Bae MD [address] [place] [address] Drive [address] [place] [phone] 05/02/2025 Marcos Bae Low HDL (under 40) E78.6 and Benign essential hypertension I10 Assessments Encounter Date Diagnosis (ICD Code) Assessment Notes Treatment Notes Treatment Clinical Notes Section Notes 05/02/2025 Low HDL (under 40) (ICD-10 - E78.6) 05/02/2025 Benign essential hypertension (ICD-10 - I10) Plan Of Treatment Pending Test Test Name Order Date Lipid Panel 05/02/2025 Next Appt Details Provider Name:Marcos howard, 05/08/2025 02:30:00 PM, [address], [address], [place], [place], [phone], Progress Notes * Dinh CEDENODOB:[birth year] (44 yo M)Acc No.[id number]:05/02/2025 Progress Note Patient: Dinh ROSARIO Provider: Ava Bae MD :1980 A ge:44 Y S ex:Male Date:05/02/2025 Address:[address] [place], [place] [phone] Subjective: * Chief Complaints: * 1 . Yearly fasting labs. * Medical History: Objective: * Vitals: Assessment: * Assessment: 1. L ow HDL (under 40) - E78.6 (Primary) 2 . B enign essential hypertension - I10 Plan: * Treatment: 2. B enign essential hypertension L AB: Lipid Panel L AB: Complete Blood Count Auto Diff (Collection Date & Time - 05/02/2025 08:15 AM) L AB: Comprehensive [place]. Panel Fast (Collection Date & Time - 05/02/2025 08:15 AM) L AB: PSA,Total (Free>4and<10) (Collection Date & Time - 05/02/2025 08:15 AM) L AB: UA ClnCatch+Micro w/rflx Cult (Collection Date & Time - 05/02/2025 08:15 AM) * Procedure Codes: 3 6415 VENIPUNCT, ROUTINE* * * The named appointment provid er may or may not be the originator of this progress note, and it is not deemed complete until electronically signed by the appointment provider. Sign off status: Pending * Provider: Ava Bae MD Date: Generated for Gricelda rutherford/Quinton/Dadaitting on: 02:24 PM EST
[2025-05-02 10:51] LABS: MANUAL DIFF FLAG NO
[2025-05-02 10:59] LABS: Hematocrit 49.3 % (42.0-52.0); Hemoglobin 16.2 g/dl (14.0-18.0); Imm Gran Abs Auto 0.02 X10*3/uL (0.00-0.03); Imm Gran Pct Auto 0.3 % (0.0-0.4); Lymphocytes Absolute Auto 2.8 X10*3/uL (1.2-4.9); Mean Corpuscular HGB Conc 32.9 g/dl (31.0-36.0); Mean Corpuscular Hemoglobin 29.7 pg (27.0-33.0); Mean Corpuscular Volume 90.5 fL (80.0-98.0); NRBC Abs Auto 0.000 X10*3/uL (0.0-0.012); NRBC Pct Auto 0.0 /100WBC (0.0-0.2); Platelet Count 324 X10*3/uL (160-400); Red Blood Count 5.45 X10*6/uL (4.60-5.80); White Blood Count 7.2 X10*3/uL (4.8-10.8)
[2025-05-02 11:07] LABS: Appearance Urine Clear; Glucose Urine UA Negative (Negative); PH 6.5 (5.0-9.0); Specific Gravity - Urine 1.020 (1.005-1.025); UMIC TRIGGER UACC YES
[2025-05-02 11:29] LABS: PSA,Total (Free>4and<10) 0.47 ng/mL (0.00-4.00)
[2025-05-02 11:39] LABS: Alanine Aminotransferase 72 U/L (0-40); Albumin Level 4.5 g/dL (3.5-5.0); Alkaline Phosphatase 73 U/L (39-117); Anion Gap 14 (12-20); Aspartate Amino Transferase 42 U/L (5-37); Blood Urea Nitrogen 10 mg/dL (9-16); Calcium 9.4 mg/dL (8.4-10.2); Carbon Dioxide 27 mmol/L (22-29); Chloride 105 mmol/L (96-108); Estimated Glomerular Filt Rate > 60; Potassium 3.6 mmol/L (3.3-5.1); Sodium 142 mmol/L (135-145); Total Protein 7.8 g/dL (6.5-8.0)
--- OUTSIDE RECORDS SUMMARY | 2025-05-02 14:23 | XMS_ITS | Clinical Summary ---
Author Organization [facility] Address [address] [phone] Phone Care Team Providers Care Operational Meteorologist Name Role Phone Pcp, Unknown Primary Care Provider Unavailabl e Allergies No known active allergies Medications No known medications Social History Tobacco Use Types Packs/Day Years Used Date Smoking Tobacco: Never Smokeless Tobacco: Never Alcohol Use Standard Drinks/Week Comments Yes 0 (1 standard drink = 0.6 oz pur e alcohol) occas Education Answer Date Recorded Are you interested in more education? Not on faith e 08/29/2022 Are you concerned about learning? Not on file 08/29/2022 No 08/29/2022 No 08/29/2022 Digital Access Answer Date Recorded No 09/29/2022 No 09/29/2022 No 09/29/2022 Reliable internet access at home? Not on file 09/29/2022 Device with a working camera? Not on file Sex and Gender Information Value Date Recorded Sex Assigned at Male 04/26/2019 8:48 AM EST Legal Sex Male 10:29 PM EDT Gender Identity Male 04/26/2019 8:48 AM EST Sexual Orientation Straight 04/26/2019 8: 48 AM EST Last Filed Vital Signs Vital Sign Reading Time Taken Comments Blood Pressure 134/92 04/26/2019 10:59 AM EST Pulse 79 04/26/2019 10:59 AM EST Temperature 37.1 C (98.7 F) 04/26/2019 10:59 AM EST Respiratory Rate 16 04/26/2019 10:59 AM EST Oxygen Saturation 98% 04/26/2019 10:59 AM EST Inhaled Oxygen Concentration - - Weight 88.5 kg (195 lb) 04/26/2019 8:46 AM EST Height 177.8 cm (5' 10 ) 04/26/2019 8:46 AM EST Body Mass Index 27.98 04/26/2019 8:46 AM EST Plan of Treatment Not on file Medical Devices Not on file Insurance [employer] NET PARTIAL [employer] NET PARTIAL HE[employer] SAF[employer] NET PARTIAL HE[employer] SAF[employer]Y NET PARTIAL HEALTH SAFETY NET PARTIAL HE[employer] SAF[employer]Y NET PARTIAL HEALTH SAF[employer]Y NET PARTIAL HE[employer] SAF[employer]Y NET PARTIAL HEALTH SAFETY NET PARTIAL Care Teams Operational Meteorologist Relationship Specialty Start Date End Date Pcp, Unknown PCP - General 04/26/19 Additional Source Comments The information contained in this document represents components of the legal health record. It is not the complete legal health record.[facility]
--- OUTSIDE RECORDS SUMMARY | 2025-05-02 14:24 | XMS_ITS | Patient Health Record ---
Author Organization Marcos Bae MD Address [address] [place], [place] [phone] Care Team Providers Care Train Operator Name Role Phone Marcos Bae Primary Care Provider Allergies Allergen (clinical drug ingredient) Drug/Non Drug Allergy documented on EMR Reaction Allergy Type Onset Date Status red cough drop (uncoded) lips swelling Allergy Active Results Component Value Reference Range Notes Complete Blood Count Auto Di ff Reviewed date:05/02/2025 12:54:16 PM Interpretation: Performing Lab:[facility], [address] [place] [phone] Notes/Report: White Blood Count 7.2 4.8-10.8 X10*3/uL [...] NRBC Abs Auto 0.000 0.0-0.012 X10*3/uL Comprehensive [place]. Panel Fa Reviewed date:05/02/2025 12:39:45 PM Interpretation: Performing Lab:[address] [phone] Notes/Report: Sodium 142 135-145 mmol/L Potassium 3.6 [...] (Free>4and<10) Reviewed date:05/02/2025 12:01:41 PM Interpretation: Performing Lab:[facility], [address] [place] [phone] Notes/Report: PSA,Total (Free>4and<10) 0.47 0.00-4.00 ng/mL A [...] t Reviewed date:05/02/2025 12:52:35 PM Interpretation: Performing Lab:[facility], [address] [place] [phone] Notes/Report: Urine, Clean Catch Color Urine Yellow Appearance Urine Clear PH 6.5 5.0-9.0 Glucose Urine UA Negative Negative mg/dL Urine Blood Negative Negative Specific [place] - Urine 1.020 1.005-1.025 Urine Protein Trace Neg-Trace mg/dL Urine Ketones Negative Negative mg/dL Nitrite Urine Negative Negative Leukocyte Esterase Urine Trace Negative RBC Urine 0-2 0-2 /HPF WBC Urine 0-5 0-5 /HPF Squamous Epithelial Cell Urine 0-2 0-2 /HPF Bacteria Urine None Seen None Seen Hyaline Casts Urine 0-2 0-2 /LPF Reason For Referral No Information Medications Medication SIG (Take, Route, Frequency, Duration) [...] a day for 30 days 12/26/2021 Not-Taking Immunizations Vaccine Route Administration Date Status Comme nts DECLINED, FLU Unknown 01/31/2013 Administered SARS-COV-2 Pfizer Unknown 07/06/2021 Administered SARS-COV-2 Pfizer Unknown 07/27/2021 Administered Fluarix Quadrivalent IM Intramuscular 01/24/2022 Administe red Fluarix Quadrivalent Unknown 05/09/2019 Refused Social History Tobacco Use: Social History Observation [...] Never (0 point) Points 1 Interpretation Negative Problems Problem Type SNOMED Code ICD Code Onset Dates Problem Status W/U Status Risk Notes Problem 8328071 Primary insomnia (F51.01) Active confirmed Problem 04466211 Essential hypertension (I10) Active confirmed Problem 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) Low HDL (under 40) (E78.6) Active confirmed Problem Benign essential hypertension (7153390) Benign essential hypertension (I10) Active confirmed Problem 76726473 Intrinsic eczema (L20.84) Active confirmed Problem Allergic rhinitis (43425379) Allergic rhinitis (J30.9) Active confirmed Problem 22334720 Sciatica of left side (M54.32) Active confirmed Problem 124863562 Subungual hematoma of finger of left hand, initial encounter (S60.10XA) Active confirmed Vital Signs Blood pressure diastolic 80 mm Hg 06/30/2024 Height 69 in 06/30/2024 Blood pressure systolic 132 mm Hg 06/30/2024 Weight 199 lbs 06/30/2024 BMI 29.38 kg/m2 06/30/2024 Encounters Encounter Location Date Provider Diagnosis Marcos Bae MD [address] [place] [phone] 05/02/2025 Marcos Bae Low HDL (under 40) E78.6 and Benign essential hypertension I10 Marcos Bae MD [address] [place] [phone] 06/30/2024 Marcos Bae Essential hypertension I10 Assessments Encounter Date Diagnosis (ICD Code) Assessment Notes Treatment Notes Treatment Clinical Notes Section Notes 05/02/2025 Low HDL (under 40) (ICD-10 - E78.6) 06/30/2024 Essential hypertension (ICD-10 - I10) stable, will cntinue current regiment 05/02/2025 Benign essential hypertension (ICD-10 - I10) Plan Of Treatment Pending Test Test Name Order Date Lipid Panel 05/02/2025 Next Appt Details Provider Name:Marcos howard, 05/08/2025 02:30:00 PM, [address] [place] [address], [address], [place], [place], [phone], Medical (General) History Medical History History ICD Code had angioedema in 2019 and was not on me dicines
== END 2025-05-02 10:44 | disposition home or self-care (01) ==
LOC: HO.LNP 10:43
PROVIDERS: Visit Provider Internal Medicine
DX: Z12.5 Encounter for screening for malignant neoplasm of prostate (principal); I10 Essential (primary) hypertension; E78.6 Lipoprotein deficiency
CPT/HCPCS: 80053; 81001; 84153; 85025